=== PATIENT | male | born 1975 | race Caucasian/White ===

== ENCOUNTER 2020-07-19 19:46 | Observation (INO) | payer OTHER ==
[~2020-07-19] VITALS: Ht 165.1 cm; Wt 74.5 kg
[~2020-07-19 19:46] MED LIST: FLEXERIL PO; GLUCOPHAGE500 MG PO; IBUPROFEN 600600 M1 PO; JANUMET 50-1,01 EACH; LANTUS SQ; NORCO 5-325 TA1 EACH PO; TORADOL 10 MG T10 MG PO; [UNRECOGNIZED DRUG - OTHER]
[2020-07-19 19:52] VITALS: BP 136/79
[2020-07-19] MEDS ORDERED: HUMALOG100 UNIT/1 SUBQ (19:55)
[2020-07-19] MEDS ORDERED: GLIPIZIDE 10 MG10 MG PO (19:55)
[2020-07-19] MEDS ORDERED: LANTUS SUBQ (19:55)
[2020-07-19 20:14] LABS: ABSOLUTE BASOPHILS 0.1 thou/uL (0.0-0.2); ABSOLUTE EOSINOPHILS 0.1 thou/uL (0.0-0.7); ABSOLUTE LYMPHOCYTES 1.4 thou/uL (0.8-5.3); ABSOLUTE MONOCYTES 0.6 thou/uL (0.0-1.2); ABSOLUTE NEUTROPHILS 5.3 thou/uL (1.6-8.1); BASOPHILS 0.8 %; EOSINOPHILS 0.7 %; HEMATOCRIT 44.6 % (42.0-52.0); HEMOGLOBIN 15.9 gm/dL (14.0-18.0); LYMPHOCYTES 19.1 %; MCH 30.9 pg (26.0-34.0); MCHC 35.6 g/dL (28.0-37.0); MCV 86.7 fL (80.0-100.0); MONOCYTES 8.2 %; MPV 7.3 fl. (7.2-11.1); NUCLEATED RBCS 0 /100WBC; PLATELET COUNT* 256 thou/uL (150-400); POLYS 71.2 %; RBC 5.14 mil/uL (4.50-6.00); RDW-CV 13.1 % (10.5-14.5); WBC 7.4 thou/uL (4.0-11.0)
[2020-07-19 20:19] LABS: CALCIUM 8.9 mg/dL (8.5-10.1); CREATININE 0.9 mg/dL (0.6-1.3); POTASSIUM 4.3 mmol/L (3.5-5.1)
[2020-07-19 20:25] LABS: INR 0.9; PROTIME 9.3 Seconds (9.20-11.50)
[2020-07-19 20:30] LABS: ALBUMIN 3.6 g/dL (3.4-5.0); MAGNESIUM 1.8 mg/dL (1.8-2.4); TOTAL PROTEIN 6.7 g/dL (6.4-8.2)
[2020-07-19 22:40] VITALS: BP 132/88
[2020-07-19 22:50] VITALS: BP 127/80
[2020-07-20] VITALS: BP 105/62
[2020-07-20 04:00] VITALS: BP 104/61
[2020-07-20 08:35] VITALS: BP 105/67
[2020-07-20] MEDS ORDERED: ASA81BEC PO (08:42)
[2020-07-20 12:30] VITALS: BP 99/63
--- NOTE | 2020-07-20 16:13 | EKG ---
[place] [address] ELECTROCARDIOGRAM REPORT Name: CHAPIN MUHAMMAD Room: [address] M.R.#: [id number] Admission: 07/19/20 Attend Phys: Brooks Wright, Discharge: Date of : 71 Date of Service: 07/19/201954 Report #: [id number] THIS REPORT FOR: //name// [facility] ED Test Date: 2020-07-19 Test Time: 19:55:06 Pat Name: CHAPIN MUHAMMAD Department: Room: [facility] Gender: M Supervisor Graphite: REEMA : 1975 Requested By: Melany Paul Order Number: [id number] MD: Bib Lyon Measurements Intervals [place] Rate: 85 P: 34 [place]: 153 QRS: -39 QRSD: 108 T: 20 QT: 373 QTc: 444 Interpretive Statements Sinus rhythm Probable left atrial enlargement Left axis deviation Abnormal R-wave progression, late transition Baseline wander in lead(s) V1,V5 No previous ECG available for comparison Electronically Signed On 07-20-2020 16:13:24 CDT by Bib Lyon [email or web address] <ELECTRONICALLY SIGNED> By: Bib Lyon MD, FACC 07/20/20 1613 54 54 Bib Lyon MD, FACC /EPI
--- NOTE | 2020-07-20 16:14 | EKG ---
[place] [address] ELECTROCARDIOGRAM REPORT Name: CHAPIN MUHAMMAD Room: [address] M.R.#: [id number] Admission: 07/19/20 Attend Phys: Brooks Wright, Discharge: Date of : 71 Date of Service: 07/19/202103 Report #: [id number] THIS REPORT FOR: //name// [facility] ED Test Date: 2020-07-19 Test Time: 21:04:37 Pat Name: CHAPIN MUHAMMAD Department: Room: [facility] Gender: M Medical Record Technician: REEMA : 1975 Requested By: Melany Paul Order Number: [id number] MD: Bib Lyon Measurements Intervals [place] Rate: 83 P: 37 RI: 151 QRS: -17 QRSD: 109 T: 15 QT: 374 QTc: 440 Interpretive Statements Sinus rhythm Probable left atrial enlargement Incomplete RBBB and LAFB RSR' in V1 or V2, right VCD ST elev, probable normal early repol pattern Baseline wander in lead(s) V4 No previous ECG available for comparison Electronically Signed On 07-20-2020 16:14:31 CDT by Bib Lyon [email or web address] <ELECTRONICALLY SIGNED> By: Bib Lyon MD, [facility] 07/20/20 1614 03 03 Bib Lyon MD, [facility] /EPI
[2020-07-20 18:33] VITALS: BP 99/63
== END 2020-07-20 18:59 | disposition home or self-care (01) ==
LOC: M.ERS 19:46 → M.TBA-ER 21:38 → M.2W 23:03
PROVIDERS: Emergency Medicine; ADMIT Internal Medicine; ATTEND Internal Medicine
DX: R07.89 Other chest pain (principal); E11.65 Type 2 diabetes mellitus with hyperglycemia; I10 Essential (primary) hypertension; F32.9 Major depressive disorder, single episode, unspecified; G47.33 Obstructive sleep apnea (adult) (pediatric); F17.210 Nicotine dependence, cigarettes, uncomplicated; Z79.82 Long term (current) use of aspirin; Z79.4 Long term (current) use of insulin; Z20.828 Contact with and (suspected) exposure to other viral communicable diseases

== ENCOUNTER 2020-07-22 21:33 | Inpatient (IN) | payer OTHER ==
[~2020-07-22] VITALS: Ht 165.1 cm; Wt 69.4 kg
--- NOTE | ~2020-07-22 | PROC ---
[address] [address] PROCEDURE REPORT Name: CHAPIN MUHAMMAD Room: [address] IN .R.#: [id number] Admission: 07/22/20 Attend Phys: Gonzalez Bazan, Discharge: Date of : 71 Report #: [id number] THIS REPORT FOR: //name// cc: FAM - No family physician/PCP FAM - No family physician/PCP ~ THIS REPORT FOR: //name// For GI report, please see the Provation report in Perceptive 7 content. By: 1327Medical Records Staff CAPRI /YOVANY
[~2020-07-22 21:33] MED LIST changes: +ASA81BEC PO; +GLIPIZIDE 10 MG10 MG PO; +HUMALOG100 UNIT/1 SUBQ; +LANTUS SUBQ
[2020-07-22 21:35] VITALS: BP 1239/50; BP 129/50
[2020-07-22 22:15] LABS: MPV 7.7 fl. (7.2-11.1)
[2020-07-22 22:17] LABS: HEMATOCRIT 48.8 % (42.0-52.0); MCH 30.7 pg (26.0-34.0); MCHC 32.8 g/dL (28.0-37.0); MCV 93.6 fL (80.0-100.0); NUCLEATED RBCS 0 /100WBC; PLATELET COUNT* 493 thou/uL (150-400); RBC 5.21 mil/uL (4.50-6.00); RDW-CV 13.2 % (10.5-14.5); WBC 29.8 thou/uL (4.0-11.0)
[2020-07-22 22:27] LABS: PROTIME 10.2 Seconds (9.20-11.50)
[2020-07-22 22:29] LABS: CALCIUM 9.3 mg/dL (8.5-10.1); POTASSIUM 5.4 mmol/L (3.5-5.1)
[2020-07-22 22:37] LABS: ALBUMIN 3.8 g/dL (3.4-5.0); MAGNESIUM 2.8 mg/dL (1.8-2.4); TOTAL BILIRUBIN 1.7 mg/dL (<0.1-1.0); TOTAL PROTEIN 7.8 g/dL (6.4-8.2)
[2020-07-22 22:37] LABS: BE -23.4 mmol/L (-2 to +3)
[2020-07-22 22:42] LABS: pH 7.125 (7.340-7.450)
[2020-07-22 22:43] LABS: PCO2 < 17.0 mmHg (35.0-45.0); PO2 156.4 mmHg (75.0-100.0)
[2020-07-22 22:53] LABS: ABSOLUTE LYMPHOCYTES 0.9 thou/uL (0.8-5.3); ABSOLUTE MONOCYTES 2.4 thou/uL (0.0-1.2); ABSOLUTE NEUTROPHILS 26.5 thou/uL (1.6-8.1); PLATELET ESTIMATE INCREASED
[2020-07-22 23:53] VITALS: BP 110/53
[2020-07-23] VITALS (25 sets, daily range): BP systolic 97–144; BP diastolic 38–88
[2020-07-23 02:43] LABS: ALBUMIN 3.3 g/dL (3.4-5.0); CALCIUM 8.7 mg/dL (8.5-10.1); CREATININE 1.5 mg/dL (0.6-1.3); MAGNESIUM 2.4 mg/dL (1.8-2.4); PHOSPHORUS* 2.9 mg/dL (2.5-4.9)
[2020-07-23 02:48] LABS: POTASSIUM 4.2 mmol/L (3.5-5.1)
[2020-07-23 07:08] LABS: ALBUMIN 3.2 g/dL (3.4-5.0); CALCIUM 8.4 mg/dL (8.5-10.1); CREATININE 1.1 mg/dL (0.6-1.3); MAGNESIUM 2.1 mg/dL (1.8-2.4); PHOSPHORUS* 1.7 mg/dL (2.5-4.9); POTASSIUM 3.7 mmol/L (3.5-5.1)
[2020-07-23 09:05] LABS: CALCIUM 8.4 mg/dL (8.5-10.1); CREATININE 1.1 mg/dL (0.6-1.3); MAGNESIUM 2.1 mg/dL (1.8-2.4); POTASSIUM 3.6 mmol/L (3.5-5.1)
[2020-07-23 09:17] LABS: DIRECT BILIRUBIN 0.2 mg/dL (<0.1-0.3); TOTAL BILIRUBIN 0.5 mg/dL (<0.1-1.0)
[2020-07-23 09:27] LABS: URINE BLOOD TRACE (Negative); URINE CLARITY CLEAR; URINE COLOR YELLOW; URINE GLUCOSE-RANDOM 2+ (Negative); URINE KETONES 2+ (Negative); URINE LEUKOCYTES-REFLEX NEGATIVE (Negative); URINE NITRITE-REFLEX NEGATIVE (Negative); URINE PROTEIN NEGATIVE (Negative); URINE SPECIFIC GRAVITY 1.025 (1.005-1.030); URINE UROBILINOGEN 0.2 E.U./dl (0.2-1.0)
[2020-07-23 09:36] LABS: ICTOTEST (BILI CONFIRMATORY) Negative (Negative); URINE BILIRUBIN 1+ (Negative)
--- NOTE | 2020-07-23 12:16 | EKG ---
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
[2020-07-23 12:22] LABS: HEMATOCRIT 41.3 % (42.0-52.0); HEMOGLOBIN 14.2 gm/dL (14.0-18.0)
[2020-07-24] VITALS (8 sets, daily range): BP systolic 96–149; BP diastolic 51–91
[2020-07-24 04:07] LABS: HEMATOCRIT 38.4 % (42.0-52.0); HEMOGLOBIN 13.3 gm/dL (14.0-18.0); MCH 30.2 pg (26.0-34.0); MCHC 34.6 g/dL (28.0-37.0); MPV 6.8 fl. (7.2-11.1); RBC 4.4 mil/uL (4.50-6.00); RDW-CV 13.2 % (10.5-14.5); WBC 21.8 thou/uL (4.0-11.0)
[2020-07-24 04:22] LABS: MCV 87.3 fL (80.0-100.0)
[2020-07-24 04:27] LABS: ALBUMIN 2.9 g/dL (3.4-5.0); CALCIUM 8.3 mg/dL (8.5-10.1); CREATININE 0.8 mg/dL (0.6-1.3); POTASSIUM 3.9 mmol/L (3.5-5.1); TOTAL BILIRUBIN 1.1 mg/dL (<0.1-1.0); TOTAL PROTEIN 5.8 g/dL (6.4-8.2)
--- NOTE | 2020-07-24 13:42 | EKG ---
[place] [address] ELECTROCARDIOGRAM REPORT Name: CHAPIN MUHAMMAD Room: [address] ADM IN M.R.#: [id number] Admission: 07/22/20 Attend Phys: Gonzalez Mendez Discharge: Date of : 71 Date of Service: 07/22/202137 Report #: [id number] THIS REPORT FOR: //name// [facility] ED Test Date: 2020-07-22 Test Time: 21:38:37 Pat Name: CHAPIN MUHAMMAD Department: Room: [facility] Gender: M Driver'S License Reviewing Officer: SIGRID : 1975 Requested By: Melany Paul Order Number: [id number] MD: Seun Pino Measurements Intervals [place] Rate: 130 P: 149 [place]: 138 QRS: -80 QRSD: 131 T: 20 QT: 348 QTc: 512 Interpretive Statements Sinus tachycardia Nonspecific IVCD with LAD Inferior infarct, old Compared to ECG 07/19/2020 Sinus rhythm no longer present Incomplete right bundle-branch block no longer present Electronically Signed On 07-24-2020 13:42:21 CDT by Seun Pino [email or web address] <ELECTRONICALLY SIGNED> By: Seun Pino MD, FAC 07/24/20 1342 37 37 Seun Pino MD, FAC /EPI
[2020-07-24 14:30] LABS: CALCIUM 8.4 mg/dL (8.5-10.1); CREATININE 0.7 mg/dL (0.6-1.3); MAGNESIUM 2.2 mg/dL (1.8-2.4); POTASSIUM 3.7 mmol/L (3.5-5.1)
[2020-07-25 05:13] VITALS: BP 149/84
[2020-07-25 05:26] LABS: HEMATOCRIT 39.4 % (42.0-52.0); HEMOGLOBIN 13.8 gm/dL (14.0-18.0); MCH 30.4 pg (26.0-34.0); MCHC 35.1 g/dL (28.0-37.0); MCV 86.6 fL (80.0-100.0); MPV 7.1 fl. (7.2-11.1); RBC 4.55 mil/uL (4.50-6.00); RDW-CV 13.1 % (10.5-14.5); WBC 13.1 thou/uL (4.0-11.0)
[2020-07-25 05:43] LABS: CALCIUM 8.5 mg/dL (8.5-10.1); CREATININE 0.7 mg/dL (0.6-1.3); POTASSIUM 3.4 mmol/L (3.5-5.1)
[2020-07-25 10:10] VITALS: BP 157/89
[2020-07-25 14:44] VITALS: BP 157/89
[2020-07-25 15:55] VITALS: BP 118/74
[2020-07-25 23:30] VITALS: BP 146/87
[2020-07-26 04:06] LABS: GLYCOHEMOGLOBIN (HGB A1C) 12.1 % (4.8-5.6)
[2020-07-26 05:06] LABS: ABSOLUTE NEUTROPHILS 6.6 thou/uL (1.6-8.1); BASOPHILS 0.3 %; EOSINOPHILS 0.1 %; HEMATOCRIT 40.4 % (42.0-52.0); HEMOGLOBIN 14.6 gm/dL (14.0-18.0); MCHC 36.1 g/dL (28.0-37.0); MCV 85.9 fL (80.0-100.0); MONOCYTES 11.1 %; NUCLEATED RBCS 0 /100WBC; PLATELET COUNT* 292 thou/uL (150-400); POLYS 76.5 %; RBC 4.71 mil/uL (4.50-6.00); RDW-CV 12.8 % (10.5-14.5); WBC 8.6 thou/uL (4.0-11.0)
[2020-07-26 05:24] LABS: ALBUMIN 2.7 g/dL (3.4-5.0); CALCIUM 8.6 mg/dL (8.5-10.1); CREATININE 0.5 mg/dL (0.6-1.3); POTASSIUM 3.1 mmol/L (3.5-5.1); TOTAL BILIRUBIN 1.2 mg/dL (<0.1-1.0); TOTAL PROTEIN 5.9 g/dL (6.4-8.2)
[2020-07-26 06:54] LABS: ESR (SEDRATE) 9 mm/hr (0-15)
[2020-07-26 07:30] VITALS: BP 141/93
[2020-07-26 16:32] VITALS: BP 160/79
[2020-07-26] MEDS ORDERED: REGLAN 10 MG TA10 MG PO (17:34)
[2020-07-26] MEDS ORDERED: PROTONIX40 M4 PO (17:35)
[2020-07-26 20:15] VITALS: BP 147/90
[2020-07-27 08:00] VITALS: BP 136/86
[2020-07-27] MEDS ORDERED: [UNRECOGNIZED DRUG - OTHER] SUBQ (10:43)
[2020-07-27] MEDS ORDERED: HUMULIN R100 UNIT/1 SUBQ (10:43)
[2020-07-27 13:50] VITALS: BP 157/89
[2020-07-27 15:17] VITALS: BP 157/89
--- NOTE | 2020-07-28 07:38 | CON ---
[address] [address] CONSULTATION Name: CHAPIN MUHAMMAD Room: [address] IN .R.#: [id number] Admission: 07/22/20 Attend Phys: Gonzalez Bazan, Discharge: 07/27/20 Date of : 71 Report #: [id number] THIS REPORT FOR: //name// cc: YVON - No family physician/PCP YVON - No family physician/PCP ~ THIS REPORT FOR: //name// CC: [facility] physician/PCP Gonzalez Bazan DICTATED BY: Tiana Lee [facility] DATE OF SERVICE: 07/24/2020 The patient does not have a PCP currently. Please note at the time of this dictation, the patient was seen and physically examined by myself. REASON FOR CONSULTATION: Nausea, vomiting, and abnormal CT of esophageal wall thickening. HISTORY OF PRESENT ILLNESS: This is a 44-year-old male who presented to the Emergency Room with complaints of nausea, vomiting and decreased oral intake over the last couple of days. He reports having a lot of polyuria and polydipsia and has had increased weakness over the last several days and unable to control his nausea and vomiting. He denies any bright red blood or any coffee ground emesis. It was also noted that he had a critically high blood sugar and some acute renal failure as well. He states he has not been getting any of his medications recently because he was unable to afford them and he has been living in a hotel at the present time. He also has complained of some chest discomfort, which has been determined to be noncardiac in origin and was placed in ICU to be placed on an insulin drip. He has never had any upper or lower scopes done at this time and denies any issues with acid reflux. ALLERGIES: No known drug allergies. MEDICATIONS: No reported medications. PAST MEDICAL HISTORY: Diabetes, depression, sleep disorder. SURGICAL HISTORY: Negative. FAMILY HISTORY: Negative for any GI or female cancers. SOCIAL HISTORY: He smokes cigarettes. He smokes a pack about every 2 [place] [address] CONSULTATION Name: CHAPIN MUHAMMAD Room: [address]#: [id number] Admission: 07/22/20 Attend Phys: Gonzalez Bazan, Discharge: 07/27/20 Date of : 71 Report #: [id number] Denies any alcohol intake or any illegal drug use. REVIEW OF SYSTEMS: Twelve-point review of systems is essentially negative except what is mentioned in the HPI. PHYSICAL EXAMINATION: VITAL SIGNS: Temperature 37.4, pulse 98, respirations 15, blood pressure 96/51. HEART: Regular rate and rhythm. LUNGS: Diminished, but clear. ABDOMEN: Soft, positive bowel sounds in all 4 quadrants with no masses or tenderness noted. LABORATORY DATA: Hemoglobin is 13.3, white count is 21.8, platelets 304. GFR is 104. LFTs are normal. Blood glucose today is 268. CT shows distal esophageal thickening, otherwise normal. IMPRESSION: 1. Nausea and vomiting, improved. 2. Abnormal CT distal esophageal thickening. 3. Leukocytosis. 4. Poorly controlled diabetic. PLAN: 1. EGD tomorrow with Dr. Smith. 2. Continue Protonix. 3. Further recommendations to be made once the procedure has been performed. Thank you for allowing us to participate in this patient's care. Please do not hesitate to call with any questions in regard to this consult. <ELECTRONICALLY SIGNED> By: Kenneth Smith DO 07/28/20 0738 1153 1239Kenneth Smith DO /nt
--- NOTE | 2020-07-28 10:07 | PATH ---
[address] [address] PATHOLOGY RPT PROCEDURE Name: ALVIN GRAY Room: [address] IN M.R.#: [id number] Admission: 07/22/20 Date of : 71 Discharge: 07/27/20 Report #: [id number] Path Case #: [id number] [facility] Accession Number: [id number] . 01 Material submitted: . esophagus - BIOPSY AT 25CM ESOPHAGUS FOR POSSIBLE BARRETTS . 01 Clinical history: . DKA VOMITING . 02 Diagnosis: Biopsy at 25 cm esophagus: - Severe chronic active esophagitis with ulceration compatible with ulcerative reflux, negative for granulomas, viral inclusions, fungal organisms, and high-grade dysplasia. See comment. (ANGELO:lizabeth; 07/27/2020) MBNato 07/28/2020 0957 Local . 02 Comment: Properly controlled GMS stain performed on A1 is negative for fungal elements. No glandular/columnar mucosa is present. 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 Special stain: GMS . 02 Electronically signed: . Hernán Lechuga MD, Pathologist NPI- [id number] . 01 Gross description: . The specimen is received in formalin, labeled "Gray Alvin, biopsy at 25 cm esophagus" and consists of 2 translucent fragments of pink-verma tissue measuring between 0.3 x 0.2 cm and 0.5 x 0.2 cm which are entirely submitted in A1. (SDY; 07/26/2020) SYU/SYU 07/26/2020 1014 Local . 02 Pathologist provided ICD-10: K20.90, K22.10 . 02 CPT . 554162, 071017 Specimen Comment: A courtesy copy of this report has been sent to [phone] Specimen Comment: [phone] Specimen Comment: Report sent to / DR CAVAZOS Performed at: [address] [place] [address] PATHOLOGY RPT PROCEDURE Name: GRAYALVIN Room: [address] [place] M.R.#: [id number] Admission: 07/22/20 Date of : 71 Discharge: 07/27/20 Report #: [id number] Path Case #: [id number] [address] [facility] [address], [place] [id number] MD Lee Goldberg MD Phone: [phone] Performed at: [address] [facility] [address] [place] [id number] MD Hernán Lechuga MD Phone: [phone]
== END 2020-07-27 15:15 | disposition home or self-care (01) | DRG 177 ==
LOC: M.ERS 21:33 → M.TBA-ER 22:02 → M.ICU 23:42 → M.3W 07-24 13:25
PROVIDERS: Emergency Medicine; Internal Medicine; Internal Medicine Gastroenterology; ADMIT Family Medicine; ATTEND Family Medicine
PROC: 0DB58ZX Excision of Esophagus, Via Natural or Artificial Opening Endoscopic, Diagnostic (ICD-10-PCS; principal; 2020-07-25)
DX: J69.0 Pneumonitis due to inhalation of food and vomit (principal); E11.10 Type 2 diabetes mellitus with ketoacidosis without coma; N17.0 Acute kidney failure with tubular necrosis; F32.9 Major depressive disorder, single episode, unspecified; D72.829 Elevated white blood cell count, unspecified; F17.210 Nicotine dependence, cigarettes, uncomplicated; E87.5 Hyperkalemia; E80.6 Other disorders of bilirubin metabolism; Z20.828 Contact with and (suspected) exposure to other viral communicable diseases; K21.00 Gastro-esophageal reflux disease with esophagitis, without bleeding; K44.9 Diaphragmatic hernia without obstruction or gangrene; Z79.899 Other long term (current) drug therapy

== ENCOUNTER 2021-08-20 20:56 | Emergency (ER) | payer OTHER ==
[~2021-08-20] VITALS: Ht 165.1 cm; Wt 72.6 kg
[~2021-08-20 20:56] MED LIST changes: +HUMULIN R100 UNIT/1 SUBQ; +PROTONIX40 M4 PO; +REGLAN 10 MG TA10 MG PO; +[UNRECOGNIZED DRUG - OTHER] SUBQ
[2021-08-20] MEDS ORDERED: JANUVIA 50 MG T50 M1 PO (21:12)
[2021-08-20] MEDS ORDERED: JANUMET 50-5001 EACH PO (21:13)
[2021-08-20] MEDS ORDERED: LIPITOR10 MG PO (21:13)
[2021-08-20 22:17] VITALS: BP 98/69
== END 2021-08-20 22:18 | disposition home or self-care (01) ==
LOC: M.ERS 20:56
DX: R42 Dizziness and giddiness (principal); Z20.822 Contact with and (suspected) exposure to COVID-19; R11.0 Nausea; R51.9 Headache, unspecified; E11.9 Type 2 diabetes mellitus without complications; F32.9 Major depressive disorder, single episode, unspecified; Z90.49 Acquired absence of other specified parts of digestive tract; Z79.4 Long term (current) use of insulin; Z79.899 Other long term (current) drug therapy; Z87.891 Personal history of nicotine dependence